=== PATIENT | male | born 2005 | race Caucasian/White ===

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

== ENCOUNTER 2023-03-29 15:26 | Emergency (ER) | payer MEDICAID, OTHER ==
[~2023-03-29] VITALS: Ht 175.3 cm; Wt 104.3 kg
[~2023-03-29 15:26] MED LIST changes: +IBUP800T54 PO
[2023-03-29 16:17] VITALS: O2SAT 98
[2023-03-29] MEDS ORDERED: AMOX-430 PO (16:25)
[2023-03-29] MEDS ORDERED: IBUP-1955 PO (16:25)
== END 2023-03-29 16:30 | disposition home or self-care (01) ==
LOC: ER 15:26
DX: H66.92 Otitis media, unspecified, left ear (principal); Z79.899 Other long term (current) drug therapy
CPT/HCPCS: A4606; A4663

== ENCOUNTER 2023-09-22 13:38 | Emergency (ER) | payer OTHER ==
[~2023-09-22] VITALS: Ht 175.3 cm; Wt 138.3 kg
[~2023-09-22 13:38] MED LIST changes: +AMOX-430 PO; +IBUP-1955 PO
[2023-09-22 13:49] VITALS: O2SAT 98
[2023-09-22] MEDS ORDERED: HYDR28.316 TP (15:45)
== END 2023-09-22 15:52 | disposition home or self-care (01) ==
LOC: ER 13:38
DX: K60.2 Anal fissure, unspecified (principal); J40 Bronchitis, not specified as acute or chronic; Z79.899 Other long term (current) drug therapy
CPT/HCPCS: A4606; A4663

== ENCOUNTER 2024-03-07 20:46 | Emergency (ER) | payer MEDICAID, OTHER ==
[~2024-03-07] VITALS: Ht 175.3 cm; Wt 138.3 kg
[~2024-03-07 20:46] MED LIST changes: +HYDR28.316 TP
[2024-03-07] MEDS ORDERED: ONDANSETRON ODT 4 MG TAB.RAPDIS ONE (22:37)
[2024-03-07] MEDS ORDERED: HYDROCODONE/APAP 10-325 MG TABLET ONE (22:38)
[2024-03-07] MEDS: ONDANSETRON ODT 4 MG TAB.RAPDIS SL ONE (22:40)
[2024-03-07] MEDS: HYDROCODONE/APAP 10-325 MG TABLET PO ONE (22:40)
[2024-03-07] MEDS ORDERED: HYDR-3980 PO (23:54)
[2024-03-07] MEDS ORDERED: ONDA4TAB11 PO (23:54)
[2024-03-08] MEDS ORDERED: HYDROCODONE/APAP 10-325 MG TABLET ONE (00:09)
[2024-03-08] MEDS: HYDROCODONE/APAP 10-325 MG TABLET PO ONE (00:11)
[2024-03-08 00:21] VITALS: BP 140/92; TEMP 98.6; O2SAT 100
== END 2024-03-08 00:21 | disposition home or self-care (01) ==
LOC: ER 20:48
DX: S83.411A Sprain of medial collateral ligament of right knee, initial encounter (principal); S50.02XA Contusion of left elbow, initial encounter; S09.8XXA Other specified injuries of head, initial encounter; M79.605 Pain in left leg; M25.561 Pain in right knee; M25.522 Pain in left elbow; R51.9 Headache, unspecified; J20.9 Acute bronchitis, unspecified; F90.9 Attention-deficit hyperactivity disorder, unspecified type; Z79.899 Other long term (current) drug therapy; Z88.7 Allergy status to serum and vaccine; Y04.0XXA Assault by unarmed brawl or fight, initial encounter; Y92.89 Other specified places as the place of occurrence of the external cause; Y93.51 Activity, roller skating (inline) and skateboarding; Y99.8 Other external cause status
CPT/HCPCS: 70450; 71045; 73080; 73590; A4606; A4663; Q0162